=== PATIENT | female | born 1955 | race Two or more races ===

== ENCOUNTER 2022-02-07 13:38 | Outpatient (CLI) | payer OTHER ==
[~2022-02-07 13:38] MED LIST: GLUMETZA500 MG PO
== END 2022-02-07 13:48 | disposition home or self-care (01) ==
LOC: SONOGRAMA 13:38
PROVIDERS: ATTEND Surgery
DX: N61.1 Abscess of the breast and nipple (principal); C50.412 Malignant neoplasm of upper-outer quadrant of left female breast

== ENCOUNTER 2022-02-07 15:28 | Outpatient (CLI) | payer OTHER | END 2022-02-07 23:00 | disposition home or self-care (01) | LOC: LAB 15:28 | PROVIDERS: ATTEND Surgery | DX: N61.1 Abscess of the breast and nipple (principal) ==

== ENCOUNTER 2022-02-10 13:21 | Inpatient (IN) | payer OTHER | END 2022-03-06 12:23 | disposition home or self-care (01) | DRG 584 | LOC: CIR.AMB 13:21 → SURG 23:00 → SURH 03-03 10:53 | PROVIDERS: ADMIT Surgery; ATTEND Surgery | PROC: 0H9U0ZZ Drainage of Left Breast, Open Approach (ICD-10-PCS; principal; 2022-02-10 21:00) | PROC: 05H933Z Insertion of Infusion Device into Right Brachial Vein, Percutaneous Approach (ICD-10-PCS; 2022-02-21) | PROC: B54MZZZ Ultrasonography of Right Upper Extremity Veins (ICD-10-PCS; 2022-02-21) | PROC: B54MZZZ Ultrasonography of Right Upper Extremity Veins (ICD-10-PCS; 2022-02-25) | PROC: 8E0ZXY6 Isolation (ICD-10-PCS; 2022-03-03) | DX: N61.1 Abscess of the breast and nipple (principal); D62 Acute posthemorrhagic anemia; L03.112 Cellulitis of left axilla; I82.A11 Acute embolism and thrombosis of right axillary vein; I82.621 Acute embolism and thrombosis of deep veins of right upper extremity; Z20.822 Contact with and (suspected) exposure to COVID-19 ==

== ENCOUNTER 2022-03-15 11:36 | Emergency (ER) | payer OTHER ==
[~2022-03-15] VITALS: Ht 160 cm; Wt 67.6 kg
[2022-03-15] MEDS ORDERED: ELIQUIS2.5 MG (11:58)
== END 2022-03-15 14:27 | disposition home or self-care (01) ==
LOC: ER 11:36
DX: Z09 Encounter for follow-up examination after completed treatment for conditions other than malignant neoplasm (principal); Z95.828 Presence of other vascular implants and grafts; Z85.3 Personal history of malignant neoplasm of breast

== ENCOUNTER 2022-12-20 09:27 | Outpatient (CLI) | payer OTHER ==
[~2022-12-20 09:27] MED LIST changes: +ELIQUIS2.5 MG
== END 2022-12-20 09:31 | disposition home or self-care (01) ==
LOC: NUCLEAR 09:27
PROVIDERS: ATTEND Internal Medicine
DX: Z45.2 Encounter for adjustment and management of vascular access device (principal)

== ENCOUNTER 2023-01-05 10:35 | Outpatient (CLI) | payer OTHER | END 2023-01-05 10:45 | disposition home or self-care (01) | LOC: SONOGRAMA 10:35 | PROVIDERS: ATTEND Surgery | DX: C44.501 Unspecified malignant neoplasm of skin of breast (principal) ==

== ENCOUNTER 2023-02-09 06:00 | Day surgery (SDC) | payer OTHER ==
[2023-02-08 09:50] LABS: URINE APPEARANCE Clear; URINE BILIRRUBIN Negative (NEGATIVE); URINE BLOOD Small; URINE COLOR Yellow; URINE GLUCOSE Negative (NEGATIVE); URINE LEUKOCYTE Negative; URINE NITRATE Negative; URINE PROTEIN Negative (NEGATIVE); URINE UROBILINOGEN 0.2 E.U./dl
[2023-02-08 09:51] LABS: HEMATOCRIT 37.8 % (36.0-45.00); HEMOGLOBIN 12.5 g/dL (12.0-15.00); MEAN CELL VOLUME 81.9 fL (80.00-100.00); MEAN CORPUSCULAR HEMOGLOBIN 27.2 pg (27.00-32.0); MEAN CORPUSCULAR HGB CONC 33.2 g/dl (32.0-36.0); PLATELET COUNT 300 K/uL (150-450); RED BLOOD COUNT 4.61 M/uL (4.00-6.00); RED CELL DISTRIBUTION WIDTH 14.7 % (11.5-14.5)
[2023-02-08 09:54] LABS: URINE EPITHELIAL CELLS 1.8 uL (0.0-38.8); URINE RBC 21.4 uL (0.0-20.8)
[2023-02-08 10:15] LABS: INR < 0.93; PARTIAL THROMBOPLASTIN TIME 24.1 SECONDS (22.0-34.0); PROTHROMBIN TIME 9.8 SECONDS (9.0-11.5)
[2023-02-08 10:26] LABS: ALBUMIN 3.9 gm/dL (3.4-5.0); BILIRUBIN TOTAL 0.3 mg/dL (0.3-1.2); CALCIUM 9.9 mg/dL (8.5-10.1); CREATININE SERUM 0.57 mg/dL (0.55-1.02); GFR 106.45; GLOBULINA 3.5 G/DL (2.4-3.5); POTASSIUM 4.93 mEq/L (3.5-5.1); TOTAL PROTEIN 7.4 gm/dL (6.4-8.2)
[~2023-02-09 06:00] MED LIST changes: +ANASTROZOLE1 MG PO
== END 2023-02-09 17:20 | disposition home or self-care (01) ==
LOC: CIR.AMB 06:00
PROVIDERS: ATTEND Surgery
DX: C50.412 Malignant neoplasm of upper-outer quadrant of left female breast (principal); C79.89 Secondary malignant neoplasm of other specified sites; C76.1 Malignant neoplasm of thorax; I10 Essential (primary) hypertension; Z20.822 Contact with and (suspected) exposure to COVID-19; E11.9 Type 2 diabetes mellitus without complications